=== PATIENT | female | born 1960 ===

== ENCOUNTER → 2018-12-28 | Outpatient (CLI) | payer BC ==
--- NOTE | 2018-12-28 20:00 | PCVCIMAG ---
EXAM: BILATERAL SUPERFICIAL VENOUS DUPLEX INDICATION: Leg pain and swelling. FINDINGS: Right leg: No thrombus in the common femoral, main femoral, or popliteal veins. These veins are compressible. 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 There is significant venous insufficiency/reflux throughout. Venous insufficiency/reflux duration is 2.0 seconds. Right Small Saphenous Vein: At the saphenopopliteal junction the diameter is 5.5 mm, and in the calf it is 6.7 mm. There is significant venous insufficiency/reflux throughout. Venous insufficiency/reflux duration is 3.0 seconds. There is not a cranial extension present. Left leg: No thrombus in the common femoral, main femoral, or popliteal veins. These veins are compressible. Left Great Saphenous Vein: Vein is surgically absent. Several small tortuous veins noted in the mid thigh along the course of the prior vein measuring 5.0 mm in diameter show insufficiency of 3.7 seconds duration. Left Small Saphenous Vein: At the saphenopopliteal junction the diameter is 5.5 mm, and in the calf it is 5.5 mm. There is significant venous insufficiency/reflux throughout. Venous insufficiency/reflux duration is 2.7 seconds. There is a cranial extension present. IMPRESSION: Right Great Saphenous Vein: Significant venous insufficiency/reflux is present as noted above in the anterior duplicated great saphenous vein. Right Small Saphenous Vein: Significant venous insufficiency/reflux is present as noted above. Left Great Saphenous Vein: Surgically absent as noted above. Left Small Saphenous Vein: Significant venous insufficiency/reflux is present as noted above. Incidental note is made of a 1.3 x 3.0 x 5.0 cm left popliteal cyst. LOC:OFFICE
== END | disposition home or self-care (01) ==
LOC: PCVCIMAG 13:02
PROVIDERS: ATTEND Nuclear Medicine Nuclear Cardiology
DX: I87.2 Venous insufficiency (chronic) (peripheral) (principal)
CPT/HCPCS: 93970

== ENCOUNTER → 2019-06-11 | Outpatient (CLI) | payer BC ==
--- NOTE | 2019-06-11 16:09 | PCVCIMAG ---
EXAM: BILATERAL SUPERFICIAL VENOUS DUPLEX INDICATION: Leg pain and swelling. Previous right left small saphenous vein and anterior duplicate right great saphenous vein venous ablation with phlebectomy is right anterior thigh and right calf. FINDINGS: Right leg: No thrombus in the common femoral, main femoral, or popliteal veins. These veins are compressible. Right Great Saphenous Vein: Occlusion throughout the length of the right great saphenous vein consistent with satisfactory prior ablation procedure. Anterior Right Great Saphenous Vein: Occlusion throughout the length of the anterior duplicated right great saphenous vein consistent with satisfactory prior ablation procedure. Right Small Saphenous Vein: Occlusion throughout the length of the right small saphenous vein consistent with satisfactory prior ablation procedure. Left leg: No thrombus in the common femoral, main femoral, or popliteal veins. These veins are compressible. Left Great Saphenous Vein: At the saphenofemoral junction the diameter is surgically absent, in the mid thigh it is surgically absent, and in the calf it is 4.9 mm. There is not significant venous insufficiency/reflux in the lower saphenous vein. Venous insufficiency/reflux duration is 0 seconds. Left Small Saphenous Vein: Occlusion throughout the length of the left small saphenous vein consistent with satisfactory prior ablation procedure. IMPRESSION: Satisfactory post ablation change in the anterior duplicated right great saphenous vein. Satisfactory post ablation change in the right small saphenous vein. Left Great Saphenous Vein: No significant venous insufficiency/reflux is present as noted above. Satisfactory post ablation change in the left small saphenous vein. LOC:[id number]
== END | disposition home or self-care (01) ==
LOC: PCVCIMAG 14:27
PROVIDERS: ATTEND Nuclear Medicine Nuclear Cardiology
DX: I87.2 Venous insufficiency (chronic) (peripheral) (principal); M79.89 Other specified soft tissue disorders
CPT/HCPCS: 93970